=== PATIENT | male | born 1990 | race Caucasian/White ===

== ENCOUNTER 2021-01-03 14:11 | Outpatient (RCR) | payer OTHER, SELFPAY | END 2021-01-03 14:12 | disposition home or self-care (01) | LOC: PT 14:11 | DX: R69 Illness, unspecified (principal) ==

== ENCOUNTER 2021-02-26 18:00 | Outpatient (RCR) | payer OTHER, SELFPAY ==
--- NOTE | 2020-11-23 13:19 | HP.PTEVAL_ITS ---
Patient's Visit Information NIKOLAI ARANDA is a 30 year old M referred to Physical Therapy by TAMMY DE OLIVEIRA with a diagnosis of LUMBAR INTERVERTEBRAL DISC DISPLACEMENT. Date of Evaluation: 11/23/20 Physical Therapist: Marlen Porter, PT, Cert MDT - Visit Plan Frequency: 2-3x /Week Duration: 4-6 Weeks Plan: LOW BACK US, E-STIM WITH CP OR MH,. POSTURE CORRECTION/STRENGTHENING, INSTRUCTION IN APPROPRIATE BODY MECHANICS AND ACTIVITY MODIFICATIONS. DLS STARTING WITH A NEUTRAL SPINE PROGRESSING ROM TOLERATED. LEE LE ROM, STRETCHING AND STRENGTHENING. HEP INSTRUCTION. - Subjective Work/Leisure: [employer]. VERY PHYSICAL JOB. A LOT OF SITTING/DRIVING TOO. OFF WORK FOR BACK SINCE APPROX OCT 29 2019. TENTATIVE RETURN TO WORK DATE IS 12/18/20. Disability: NO. Present symptoms: RIGHT LOW BACK PAIN, RIGHT THIGH, LEG AND FOOT PAIN. ALSO RIGHT LE NUMBNESS AND TINGLING. NO LEFT LE SX'S EXEPT L BIG TOE IS TENDER SOMETIMES. Present since: 10/25/20. Pain Scale: WORST 5/10, LEAST 1/10. Currently: 03/12. Commenced as a result of: BENT OVER TO LOAD HOSES AT WORK AND FELT SEVERE BACK AND LEG PAIN. STATES HE ALMOST FELL OVER. Symptoms at onset: RIGHT LOW BACK AND LEG PAIN. Worse: TOO MUCH SITTING OR DRIVING, TWISITING, BENDING, LIFTING, EVEN WHEN I STEP WRONG SOMETIMES. TOO MUCH WALKING. PHYSICAL STUFF - BEING BUSY. Better: LYING ON STOMACH OVER PILLOWS. LYING ON BACK AND PUTTING LEG UP. Disturbed sleep: YES. Previous history/Previous treatment: TOWARD THE END OF LAST YEAR STARTED SEEING A CHIROPRACTOR FOR SHLD AND NECK PAIN BUT NOT LOW BACK PAIN. THE CHIROPRACTOR ADJUSTED WHOLE SPINE. WENT FOR ABOUT 3 MONTHS AND STOPPED. LAST CHIROPRACTIC VISIT WAS ABOUT APR 2020 UNTIL THIS EPISODE. Treatment this episode: WENT TO CHIROPRACTOR THE DAY HE GOT HURT IN OCTOBER AND GOT AN ADJUSTME NT. IT DID NOT HELP - I THINK IT MADE IT WORSE. WENT TO DIFFERENT CHIROPRACTOR, GOT X-RAYS AND HE TRIED TO ADJUST HIM BUT PATIENT REPORTS HE WAS IN SO MUCH PAIN HE COULDNT DO MUCH. WENT THE THRUSDAY AND FRIDAY AFTER INJURY. THEN CONSULT WITH DR. DE OLIVEIRA AND HAS HAD ABOUT 3 VISITS AT [facility]. ONE ROUND OF STEROIDS, MALOXACAM NOW. PAIN MGMT CONSULT HAS BEEN ORDERED BUT NOT SCHEDULED YET. PATIENT IS WAIT FOR CALL. FOLLOW UP WITH DR. DE OLIVEIRA PENDING IN ONE MONTH. Coughing/sneezing/straining: POSTIVIE. Gait: I LIMP. I AM VERY TIMID WITH MY RIGHT SIDE BECAUSE SOMETIMES IT BITES ME. Difficulty initiating urination: NO. Accidents: NO. Unexplained weight loss: Imaging: LUMBAR MRI - 2 HNP'S PER PATIENT REPORT. PMH/Recent major surgery: UNREMARKABLE. 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 - Objective Sitting/Standing Posture: POOR. LEANS TO THE LEFT TO GET PRESSURE OFF RIGHT LE. Lordosis: MILDLY DECREASED. Lateral shift: MILD RIGHT LATERAL SHIFT. Relevant shift: NO. Active Correction of posture: WORSE. PULLS DOWN RIGHT LE. Other Observations: INDEP TRANSFER SIT TO STAND WITHOUT UE ASSIST. D IFFICULTY INITIATING GAIT ON RIGHT LE AFTER SITTING AND C/O INCREASED PAIN RISING FROM SITTING. Motor deficit: L LE 5/5 WITH MMT'ING. RIGHT LE - HIP 4- /5, KNEE EXT 4/5, KNEE FLEX 4/5, ANKLE DORSIFLEX 5/5. Sensory deficit: DECREASED RIGHT LE LIGHT TOUCH SENSATION COMPARED TO LEFT. ROM deficit: MILD LEE HS'S TIGHTNESS RIGHT > LEFT. Reflexes: 1/2 RIGHT QUAD AND 2/2 RIGHT ACHILLES DTR. 2/2 LEFT LE. Dural Signs: POSITIVE LEE LE'S RIGHT > LEFT. Lumbar mvmt loss: flex - NIL. ext - MOD - PINCHES. R SG - MOD. L SG - MIN. PATIENT WITH C/O INCREASED BACK AND RIGHT LE SX'S WITH LUMBAR ROM ALL PLANES AND GUARDING WITH ALL BACK MVMTS BUT FLEX ROM IS FULL. Core strength: FAIR. Palpation: NO ACUTE PAIN WITH LIGHT PALPATION OF LUMBOSACRAL AREA. INCREASED MUSCLE TONE LEE PARASPINALS. TREATMENT: NEUROMUSCULAR REEDUCATION - RETRAINING OF MVMT AND POSTURE FOR SITTING, LYING AND STANDING ACTIVITIES. INCLUDING AVOIDANCE OF BENDING, LIFTING AND TWISTING. PATIENT COMMUNICATED A GOO D UNDERSTANDING OF ALL INSTRUCTIONS AFTER GIVEN. - Balance/Special Test Scores Oswestry Low Back Score: 12 - Goals Goal 1:: DECREASE C/O LOW BACK AND RIGHT LE SX'S. Goal Time Frame: 4-6 Weeks Goal 2:: IMPROVE LIFTING, SITTING, STANDING, SLEEP, SOCIAL LIFE, TRAVELING, WORK /HOMEMAKING FUNCTION. Goal Time Frame: 4-6 Weeks Goal 3:: INSTRUCT IN PROPHYLAXIS Goal Time Frame: 4-6 Weeks - Anticipated Interventions Patient/Client Instruction: Educate patient on: Condition, Plan of Care, Risk Factors For the Purpose of:: To improve self management Therapeutic Exercise to Include: Strength training, Body mechanics, Postural training, Flexibilty training, Neuromotor development, In an aquatic setting, Dynamic Lumbar Stabilization For the Purpose of:: To decrease pain, To increase ROM, To improve muscle performance and motor function, To increase tolerance to activity/condition/pos ition, To improve ability of physical actions for home/community/work/leisure TENS: Yes IF ES: Yes Cryotherapy (ice pack, ice massage): Yes Thermo therapy (hot pack): Yes Ultrasound (thermal/non thermal): Yes For the Purpose of:: To decrease pain, To increase ROM, To improve muscle performance and motor function, To increase tolerance to activity/condition/position, To improve ability of physical actions for home/community/work/leisure Thank you for the opportunity to evaluate your patient. For Medicare and Medicare HMO plans, please review the plan of care and approve it. It will need to be FAXED BACK to us at [phone] for Medicare purposes. For Medicare only, by signing this I certify the plan of care. Please let me know if there are questions or concerns regarding this plan of care. Physician Signat ure: Date:
--- NOTE | 2020-12-08 16:19 | HP.PTREVAL ---
TAMMY DE OLIVEIRA, It has been my pleasure to treat NIKOLAI ARANDA over the last 5 visits for LUMBAR INTERVERTEBRAL DISC DISPLACEMENT. Please see the progress note below for an update on the physical therapy plan of care! Subjective: PATIENT REPORTS HE IS ABOUT THE SAME WHEN HE STARTED PT. PATIENT REPORTS HE STAYS ACTIVE BUT HASN'T BEEN GIVEN ANY HOME EX'S. REPORTS IF HE GOES TO FAR SOMETIME IN THERAPY HE FEELS A PINCH LIKE WHEN IT STARTED BUT THEN GOES AWAY. PATIENT REPORTS HE IS STILL OFF WORK. STATES EVERYTHING IS GETTING SWITCHED OVER TO WORKERS COMPENSATION. STATES [facility] HAS THE PAPERWORK. STATES DR. DE OLIVEIRA WAS PLANNING FOR HIM TO HAVE AN INJECTION WITH PAIN MGMT LAST WEEK AND BEFORE GOING BACK TO WORK BUT THAT HAS BEEN DELAYED. TENTATIVE RTW DATE OF 12/18/20 MIGHT CHANGE NOW PER PATIENT REPORT. STATES HE STILL GETS SORENESS AND TINGLING IN THE RIGHT LOWER LEG. PATIENT REPORTS UP TO 4/10 PAIN IN THE RIGHT BACK/THIGH AREA AT THE WORST IN THE LAST WEEK. PATIENT REPORTS HE HAS THE MOST PAIN AFTER THERAPY. PATIENT REPORTS HE STILL CAN NOT WALK NORMAL ON THE RIGHT LE DUE TO PAIN. Objective/Function: PATIENT WAS SEEN TODAY FOR RE-ASSESSMENT OF PROGRESS TOWARD THE SET PT GOALS AND THE NEED FOR FURTHER PHYSICAL THERAPY VS READINESS FOR DISCHARGE. SUBJECTIVELY PATIENT IS REPORTINIG INCREASED PAIN POST PT SESSIONS BUT NO BETTER AND NO WORSE OVER-ALL SINCE STARTING PT. OBJECTIVELY HE DEMO'S A LITTLE BIT OF INCREASED STRENGTH IN THE RIGHT HIP AND KNEE COMPARED TO INITIAL EVAL AND HE NOW HAS A NEGATIVE LLE DURAL SIGN BUT NO OTHER SIGNIFICANT CHANGES. PATIENT CONTINUES TO HAVE LUMBAR ROM BLOCKED INTO EXTENSION AND RIGHT SG WITH TESTING IN STANDING AND C/O SHARP PINCHING PAIN IN RIGHT BACK AND THIGH WITH TESTING. RECOMMENDED TRIAL OF AQUATIC THERAPY TO SEE IF WE CAN PROGRESS WITH FUNCTIONAL ROM AND STRENGTHENING AND PATIENT IS AGREEABLE BUT WOULD LIKE TO TALK WITH HIS SURGEON FIRST TO SEE IF HE SHOULD EVEN CONTINUE PT AT THIS TIME WITH HIS INJECTIONS BEING DELAYED. Plan Plan: AQUATIC THERAPY 2-3 TIMES A WEEK X 3-4 WEEKS FOR PAIN RELIEF, POSTURE CORRECTION/STRENGTHENING,. INSTRUCTION IN APPROPRIATE BODY MECHANICS AND ACTIVITY. MODIFICATIONS. DLS STARTING WITH A NEUTRAL SPINE PROGRESSING ROM TOLERATED. LEE LE ROM, STRETCHING AND STRENGTHENING. HEP INSTRUCTION. Balance/Gait/Functional tests - Balance/Special Test Scores Oswestry Low Back Score: 12 Goals Goal 1:: DECREASE C/O LOW BACK AND RIGHT LE SX'S. Goal Time Frame: 4-6 Weeks Goal Progress: Not Progressing Goal 2:: IMPROVE LIFTING, SITTING, STANDING, SLEEP, SOCIAL LIFE, TRAVELING, WORK/HOMEMAKING FUNCTION. Goal Time Frame: 4-6 Weeks Goal Progress: Not Progressing Goal 3:: INSTRUCT IN PROPHYLAXIS Goal Time Frame: 4-6 Weeks Goal Progress: Not Progressing Anticipated Interventions Patient/Client Instruction: Educate patient on: Condition, Plan of Care, Risk Factors For the Purpose of:: To improve self management Therapeutic Exercise to Include: Strength training, Body mechanics, Postural training, Flexibilty training, Neuromotor development, In an aquatic setting, Dynamic Lumbar Stabilization For the Purpose of:: To decrease pain, To increase ROM, To improve muscle performance and motor function, To increase tolerance to activity/condition/position, To improve ability of physical actions for home/community/work/leisure TENS: Yes IF ES: Yes Cryotherapy (ice pack, ice massage): Yes Thermo therapy (hot pack): Yes Ultrasound (thermal/non thermal): Yes For the Purpose of:: To decrease pain, To increase ROM, To improve muscle performance and motor function, To increase tolerance to activity/condition/position, To improve ability of physical actions for home/community/work/leisure Please do not hesitate to contact me at [phone] by phone or if you have questions or concerns regarding this new plan of care! Sincerely, Marlen Porter, PT, Cert MDT
--- NOTE | 2021-02-26 18:36 | HP.PTREVAL_ITS ---
TAMMY DE OLIVEIRA, It has been my pleasure to treat NIKOLAI ARANDA over the last 10 visits for LUMBAR INTERVERTEBRAL DISC DISPLACEMENT. Please see the progress note below for an update on the physical therapy plan of care! Subjective: PATIENT REPORTS HIS BACK IS STARTING TO GIVE HIM TROUBLE AGAIN. HE RELATES HIS INCREASED BACK SORENESS TO DOING MORE AT WORK. FOLLOW UP PENDING WITH DR. DE OLIVEIRA IN MARCH. PATIENT REPORTS NO PAIN RIGHT NOW BUT WAS HURTING AT WORK. INTERMITTENT RIGHT LE PAIN TO THE ANKLE NOT FOOT NOW. UP TO 3/10 AT ITS WORST. PATIENT REPORTS HE DOES NOT FEEL MORE THERAPY WOULD HELP HIM. REPORTS HE IS NOT DOING HIS HEP BECAUSE HE IS TOO BUSY WITH WORK. WORKING ABOUT 10 OR MORE HOURS A DAY. Objective/Function: PATIENT WAS SEEN TODAY FOR RE-ASSESSMENT OF PROGRESS TOWARD THE SET PT GOALS AND THE NEED FOR FURTHER PHYSICAL THERAPY VS READINESS FOR DISCHARGE. PATIENT HAS IMRPOVED OVER-ALL WITH TESTING FOLLOWS - UPON EXAM TODAY: Sitting/Standing Posture: FAIR. Lordosis: MILDLY DECREASED. Lateral shift: NO. Relevant shift: N/A. Active Correction of posture: NE. Other Observations: INDEP TRANSFER SIT TO STAND WITHOUT UE ASSIST. NO DIFFICULTY INITIATING GAIT ON RIGHT LE AFTER SITTING AND NO C/O INCREASED PAIN RISING FROM SITTING TODAY. Motor deficit: LEE LE'S 5/5. Sensory deficit: LEE LE LIGHT TOUCH SENSATION GROSSLY INTACT AND SYMMETRICAL. ROM deficit: MILD LEE HS'S TIGHTNESS RIGHT > LEFT. Dural Signs: NEGATIVE LEE LE'S. Lumbar mvmt loss: flex - NIL. ext - MIN. R SG - NIL. L SG - NIL. PATIENT REPORTS LOW BACK SORENESS WITH LUMBAR ROM TESTING ALL PLANES BUT ROM HAS IMPROVED. Core strength: FAIR. OTHER: INSTRUCTED IN POSSIBLE BENEFITS OF EX'S GIVEN AND ENCOURAGED CONTINUATION OF THEM. Plan Plan: D/C TO FOLLOW UP WITH PHYSICIAN NEEDED. ENCOURAGED PATIENT TO CONSULT DOCTOR IF SX'S DO NOT GET BETTER. Balance/Gait/Functional tests - Balance/Special Test Scores Oswestry Low Back Score: 4 Goals Goal 1:: DECREASE C/O LOW BACK AND RIGHT LE SX'S. Goal Time Frame: 4-6 Weeks Goal Progress: Goal Met Goal 2:: IMPROVE LIFTING, SITTING, STANDING, SLEEP, SOCIAL LIFE, TRAVELING, WORK/HOMEMAKING FUNCTION. Goal Time Frame: 4-6 Weeks Goal Progress: Goal Met Goal 3:: INSTRUCT IN PROPHYLAXIS Goal Time Frame: 4-6 Weeks Goal Progress: Goal Met Anticipated Interventions Patient/Client Instruction: Educate patient on: Condition, Plan of Care, Risk Factors For the Purpose of:: To improve self management Therapeutic Exercise to Include: Strength training, Body mechanics, Postural training, Flexibilty training, Neuromotor development, In an aquatic setting, Dynamic Lumbar Stabilization For the Purpose of:: To decrease pain, To increase ROM, To improve muscle performance and motor function, To increase tolerance to activity/condition/position, To improve ability of physical actions for home/community/work/leisure TENS: Yes IF ES: Yes Cryotherapy (ice pack, ice massage): Yes Thermo therapy (hot pack): Yes Ultrasound (thermal/non thermal): Yes For the Purpose of:: To decrease pain, To increase ROM, To improve muscle performance and motor function, To increase tolerance to activity/condition/position, To improve ability of physical actions for home/community/work/leisure Please do not hesitate to contact me at [phone] by phone or Fax: if you have questions or concerns regarding this new plan of care! Sincerely, Marlen Porter, PT, Cert MDT
--- NOTE | 2021-03-01 13:43 | HP.PTDCSUM ---
It has been my pleasure to treat NIKOLAI ARANDA referred by TAMMY DE OLIVEIRA, with the diagnosis of LUMBAR INTERVERTEBRAL DISC DISPLACEMENT for a total of 10 visit(s). Discharge Date: Please see the following information for a summary of their discharge status. Subjective: PATIENT REPORTS HIS BACK IS STARTING TO GIVE HIM TROUBLE AGAIN. HE RELATES HIS INCREASED BACK SORENESS TO DOING MORE AT WORK. FOLLOW UP PENDING WITH DR. DE OLIVEIRA IN MARCH. PATIENT REPORTS NO PAIN RIGHT NOW BUT WAS HURTING AT WORK. INTERMITTENT RIGHT LE PAIN TO THE ANKLE NOT FOOT NOW. UP TO 3/10 AT ITS WORST. PATIENT REPORTS HE DOES NOT FEEL MORE THERAPY WOULD HELP HIM. REPORTS HE IS NOT DOING HIS HEP BECAUSE HE IS TOO BUSY WITH WORK. WORKING ABOUT 10 OR MORE HOURS A DAY. Back Pain Intensity (Out of 10): 3 RIGHT THIGH Pain Intensity (Out of 10): 0 RIGHT LEG/FOOT Pain Intensity (Out of 10): 0 % Improvement: 75 Objective/Function: PATIENT WAS SEEN TODAY FOR RE-ASSESSMENT OF PROGRESS TOWARD THE SET PT GOALS AND THE NEED FOR FURTHER PHYSICAL THERAPY VS READINESS FOR DISCHARGE. PATIENT HAS IMRPOVED OVER-ALL WITH TESTING FOLLOWS - UPON EXAM TODAY: Sitting/Standing Posture: FAIR. Lordosis: MILDLY DECREASED. Lateral shift: NO. Relevant shift: N/A. Active Correction of posture: NE. Other Observations: INDEP TRANSFER SIT TO STAND WITHOUT UE ASSIST. NO DIFFICULTY INITIATING GAIT ON RIGHT LE AFTER SITTING AND NO C/O INCREASED PAIN RISING FROM SITTING TODAY. Motor deficit: LEE LE'S 5/5. Sensory deficit: LEE LE LIGHT TOUCH SENSATION GROSSLY INTACT AND SYMMETRICAL. ROM deficit: MILD LEE HS'S TIGHTNESS RIGHT > LEFT. Dural Signs: NEGATIVE LEE LE'S. Lumbar mvmt loss: flex - NIL. ext - MIN. R SG - NIL. L SG - NIL. PATIENT REPORTS LOW BACK SORENESS WITH LUMBAR ROM TESTING ALL PLANES BUT ROM HAS IMPROVED. Core strength: FAIR. OTHER: INSTRUCTED IN POSSIBLE BENEFITS OF EX'S GIVEN AND ENCOURAGED CONTINUATION OF THEM. Goal 1:: DECREASE C/O LOW BACK AND RIGHT LE SX'S. Goal Progress: Goal Met Goal 2:: IMPROVE LIFTING, SITTING, STANDING, SLEEP, SOCIAL LIFE, TRAVELING, WORK/HOMEMAKING FUNCTION. Goal Progress: Goal Met Goal 3:: INSTRUCT IN PROPHYLAXIS Goal Progress: Goal Met Plan: D/C TO FOLLOW UP WITH PHYSICIAN NEEDED. ENCOURAGED PATIENT TO CONSULT DOCTOR IF SX'S DO NOT GET BETTER. If there are questions or concerns regarding this patient's physical therapy, please feel free to call me at [phone]. Thank you for the referral of this patient. Sincerely, Marlen Porter, PT, Cert MDT Balance/Gait/Functional tests - Balance/Special Test Scores Oswestry Low Back Score: 4
== END 2021-02-26 19:00 | disposition home or self-care (01) ==
LOC: PT 18:00
DX: M51.26 Other intervertebral disc displacement, lumbar region (principal); M51.27 Other intervertebral disc displacement, lumbosacral region
CPT/HCPCS: 97110; 97112; 97162; 97164